=== PATIENT | male | born 1955 | race Caucasian/White ===

== ENCOUNTER 2023-02-07 05:01 | Emergency (ER) | payer OTHER ==
[2023-02-07 05:10] VITALS: BP 144/84; PULSE 80; RESP 18; TEMP 98.5; BMI 21.2
[2023-02-07] MEDS ORDERED: SILVER NITRATE 75% APPLIC STCK 1 PKT EACH ONE (05:14)
[2023-02-07] MEDS ORDERED: LIDO 2%/EPI 1:200000 PRESRVFRE (20 ML SDVIAL) ONE (05:22)
== END 2023-02-07 05:56 | disposition home or self-care (01) ==
LOC: FER 05:01
DX: L76.22 Postprocedural hemorrhage of skin and subcutaneous tissue following other procedure (principal)
CPT/HCPCS: 99282-25